=== PATIENT | male | born 1980 | race Caucasian/White ===

== ENCOUNTER 2019-01-19 11:57 | Day surgery (SDC) | payer MEDICAID ==
[2019-01-11 14:42] LABS: BASOPHILS # (AUTO) 0.1 X10'3 (0-0.2); BASOPHILS % (AUTO) 0.5 % (0-1); EOSINOPHILS # (AUTO) 0.5 X10'3 (0-0.9); EOSINOPHILS % (AUTO) 4.2 % (0-6); LYMPHOCYTES # (AUTO) 3.9 X10'3 (1.1-4.8); LYMPHOCYTES % (AUTO) 31.2 % (21-51); MEAN CORPUSCULAR HEMOGLOBIN 30.4 PG (27.0-31.0); MEAN CORPUSCULAR HGB CONC 34.2 g/dL (33.0-36.5); MEAN CORPUSCULAR VOLUME 88.8 FL (78-98); MEAN PLATELET VOLUME 9.2 FL (7.4-10.4); MONOCYTES # (AUTO) 0.8 X10'3 (0-0.9); NEUTROPHILS # (AUTO) 7.3 X10'3 (1.8-7.7); NEUTROPHILS % (AUTO) 58.1 % (42-75); PRE OP HEMATOCRIT 42.5 % (42.0-52.0); PRE OP HEMOGLOBIN 14.5 g/dL (14.0-17.9); PRE OP PLATELET COUNT 279 X10'3 (140-440); RED BLOOD COUNT 4.79 X10'6 (4.70-6.10); RED CELL DISTRIBUTION WIDTH 13.7 % (11.5-14.5)
[2019-01-11 15:02] LABS: ALBUMIN 4.2 G/DL (3.4-5.0); ALBUMIN/GLOBULIN RATIO 1.1 (1.1-1.5); ALKALINE PHOSPHATASE 56 IU/L (46-116); BLOOD UREA NITROGEN 6 MG/DL (7-18); BUN/CREATININE RATIO 4.9 (5.4-32.0); CALCIUM 8.9 MG/DL (8.5-10.1); CHLORIDE 104 MMOL/L (99-107); CREATININE 1.23 MG/DL (0.60-1.10); PRE OP ALT 68 U/L (30-65); PRE OP ANION GAP 11 (8-16); PRE OP AST 35 U/L (10-37); PRE OP BILIRUB, TOTAL 0.4 MG/DL (0.0-1.0); PRE OP GLUCOSE 109 MG/DL (70-104); PRE OP POTASSIUM 3.8 MMOL/L (3.4-5.1); PRE OP SODIUM 141 MMOL/L (135-145); TOTAL CARBON DIOXIDE 26.4 MMOL/L (24-32); eGFR 66 ML/MIN
[2019-01-19] VITALS (11 sets, daily range): BP systolic 121–158; BP diastolic 69–105
[~2019-01-19] VITALS: Ht 177.8 cm; Wt 117.5 kg
[~2019-01-19 11:57] MED LIST: CELE-193 PO; FEXO-124 PO
[2019-01-19] MEDS ORDERED: cefazolin/dext.iso 2gm/50ml 50 ML IV ONE (12:15)
[2019-01-19] MEDS ORDERED: VANCOMYCIN INJ 1000 MG in NORMAL SALINE 250ml IV.SOLN IV ONE (12:15)
[2019-01-19] MEDS ORDERED: ringers solution, lacted 1,000 ML IV SCH ×2 (12:15→15:11)
[2019-01-19] MEDS ORDERED: famotidine 20mg tablet PO ONE (12:15)
[2019-01-19] MEDS ORDERED: BUPIVAcaine/PF 2.5 mg/ml (0.25%) 30ml vial ONE (13:00)
[2019-01-19] MEDS ORDERED: triamcinolone acetonide 40mg/ml inj ONE (14:27)
[2019-01-19] MEDS ORDERED: sevoflurane 250ml liquid IH ONE (14:41)
[2019-01-19] MEDS ORDERED: fentaNYL/PF 50MCG/1 ML 2ML syringe ONE (14:44)
[2019-01-19] MEDS ORDERED: midazolam 2 mg/2 ml injection ONE (14:44)
[2019-01-19] MEDS ORDERED: propofol inj 20 ML IV ONE (14:46)
[2019-01-19] MEDS ORDERED: ondansetron/PF 4mg/2ml inj IV PRN (15:15)
[2019-01-19] MEDS ORDERED: meperidine/PF 25mg/ml syringe IV PRN ×2 (15:15)
[2019-01-19] MEDS ORDERED: morphine 4 MG/ML inj SYRINge IV PRN (15:15)
[2019-01-19] MEDS ORDERED: proCHLORperazine 10 MG/2 ml inj IV PRN (15:15)
--- NOTE | 2019-01-19 15:40 | NUR ---
Received from OR via [facility], accompanied by Anesthesiologist YE and report given by Anesthesiolgist. PATIENT ADMINISTERED PAIN MEDS UPON ARRIVAL. 20G PIV IN LEFT WRIST, BIAS WRAP TO LEFT KNEE AND IS CDI. Addendum: 01/19/19 at 1551 by Ric Singh RN, RN Amended: Links added.
[2019-01-19] MEDS: morphine 4 MG/ML inj SYRINge IV PRN ×2 (15:46→15:58)
[2019-01-19] MEDS: meperidine/PF 25mg/ml syringe IV PRN ×2 (15:56→16:06)
[2019-01-19] MEDS ORDERED: HYDROmorphone inj. 0.5 MG/0.5 ML DISP.SYRIN IV PRN (16:15)
[2019-01-19] MEDS ORDERED: ketorolac trometh. 30mg/ml inj. IV ONE (16:15)
[2019-01-19] MEDS ORDERED: acetaminophen 1,000mg/100ml IV 100 ML IV PRN (16:15)
--- NOTE | 2019-01-19 17:20 | NUR ---
ALL DC CRITERIA HAS BEEN MET. IV TAKEN OUT WITHOUT COMPLICATIONS. ALL INSTRUCTIONS COVERED AND ALL QUESTIONS ANSWERED. DRESSINGS CDI. OUT VIA WHEELCHAIR TO PERSONAL VEHICLE WHERE PATIENT WAS SECURED IN AND DRIVEN HOME BY FAMILY. PRESENT TO ASSIST WITH DRESSING. OUT VIA WHEELCHAIR TO PERSONAL VEHICLE WHERE HIS DROVE HIM HOME. Addendum: 01/19/19 at 1732 by Ric Singh RN, RN Amended: Links added.
== END 2019-01-19 17:20 | disposition home or self-care (01) ==
LOC: PAS 11:57
PROVIDERS: ATTEND Orthopaedic Surgery
DX: S83.232A Complex tear of medial meniscus, current injury, left knee, initial encounter (principal); S83.282A Other tear of lateral meniscus, current injury, left knee, initial encounter; M17.0 Bilateral primary osteoarthritis of knee; M94.262 Chondromalacia, left knee; F17.290 Nicotine dependence, other tobacco product, uncomplicated; E66.01 Morbid (severe) obesity due to excess calories; Z68.37 Body mass index [BMI] 37.0-37.9, adult; Z79.899 Other long term (current) drug therapy; Z72.89 Other problems related to lifestyle; Z88.1 Allergy status to other antibiotic agents; X58.XXXA Exposure to other specified factors, initial encounter; Y93.89 Activity, other specified; Y92.89 Other specified places as the place of occurrence of the external cause; Y99.8 Other external cause status
CPT/HCPCS: 29873; 29879; 29880; 36415; 80053; 82948; 85025; J0131; J1170; J1885; J2175; J2250; J2270; J2704; J3010; J3301; J3370; J3490; A4215; A4618; A6250; A6449; A7000; J7120